=== PATIENT | female | born 1945 | race Hispanic/Latino ===

== ENCOUNTER 2019-01-11 16:08 | Emergency (ER) | payer OTHER ==
--- OUTSIDE RECORDS SUMMARY | 2019-01-11 16:11 | XMS REPORT | Continuity of Care Document ---
:1945 Author Organization [facility] Team Providers Name Role Phone Harpal Garcia MD Unavailable Unavailable Encounters Encounter Performer Location Date Lab Report Harpal Garcia MD [facility] Jan 24, 2012 Problems Problem Effective Dates Problem Status KNEE PAIN, BILATERAL Inactive SHOULDER PAIN, BILATERAL Inactive ARTHRITIS Inactive PAIN IN JOINT, MULTIPLE SITES Inactive DEGENERATIVE JOINT DISEASE, KNEE Inactive RHEUMATOID ARTHRITIS Inactive OSTEOPENIA Inactive SHOULDER PAIN, RIGHT Inactive ELBOW PAIN, LEFT Inactive Procedures Date Description Comments Dec 01, 2009 genitourinary review of systems, E&M denies loss of urine, frequent urination, painful urination, blood in urine or kidney stones Dec 16, 2009 genitourinary review of systems, E&M denies loss of urine, frequent urination, painful urination, blood in urine or kidney stones Jan 18, 2010 genitourinary review of systems, E&M denies loss of urine, frequent urination, painful urination, blood in urine or kidney stones Mar 02, 2010 genitourinary review of systems, E&M denies loss of urine, frequent urination, painful urination, blood in urine or kidney stones May 04, 2010 genitourinary review of systems, E&M denies loss of urine, frequent urination, painful urination, blood in urine or kidney stones Jun 22, 2010 genitourinary review of systems, E&M denies loss of urine, frequent urination, painful urination, blood in urine or kidney stones September 20, 2010 genitourinary review of systems, E&M denies loss of urine, frequent urination, painful urination, blood in urine or kidney stones Dec 21, 2010 genitourinary review of systems, E&M denies loss of urine, frequent urination, painful urination, blood in urine or kidney stones Mar 24, 2011 genitourinary review of systems, E&M denies loss of urine, frequent urination, painful urination, blood in urine or kidney stones Jul 05, 2011 genitourinary review of systems, E&M denies loss of urine, frequent urination, painful urination, blood in urine or kidney stones October 04, 2011 genitourinary review of systems, E&M denies loss of urine, frequent urination, painful urination, blood in urine or kidney stones Jan 03, 2012 genitourinary review of systems, E&M denies loss of urine, frequent urination, painful urination, blood in urine or kidney stones Medications Medication Instructions Start Date Status FOLIC ACID 1 MG TABS 1 po daily Dec 16, 2009 Active VITAMIN D 21014 UNIT CAPS 1 tab q week Dec 16, 2009 Inactive KAPIDEX 60 MG CPDR 1 tab qd Dec 01, 2009 Inactive EC-NAPROSYN 375 MG TBEC 1 tab q 12 hourly prn Dec 01, 2009 Inactive ALENDRONATE SODIUM 35 MG TABS 1 tab q week Mar 02, 2010 Inactive METHOTREXATE 2.5 MG TABS 6 tabs weekly September 20, 2010 Active ALENDRONATE SODIUM 35 MG TABS 1 tab q weekly Mar 24, 2011 Active Vital Signs Date Description Test Result Dec 01, 2009 weight E&M - 3141-9 WEIGHT 155 lb Dec 01, 2009 blood pressure, systolic - 8480-6 BP SYSTOLIC 146 mm Hg Dec 01, 2009 blood pressure, diastolic - 8462-4 BP DIASTOLIC 78 mm Hg Dec 01, 2009 pulse rate E&M - 8867-4 PULSE RATE 82 /min Dec 01, 2009 height E&M - 8302-2 HEIGHT 60 in Dec 16, 2009 blood pressure, systolic - 8480-6 BP SYSTOLIC 113 mm Hg Dec 16, 2009 blood pressure, diastolic - 8462-4 BP DIASTOLIC 63 mm Hg Dec 16, 2009 pulse rate E&M - 8867-4 PULSE RATE 65 /min Jan 18, 2010 blood pressure, systolic - 8480-6 BP SYSTOLIC 122 mm Hg Jan 18, 2010 blood pressure, diastolic - 8462-4 BP DIASTOLIC 58 mm Hg Jan 18, 2010 pulse rate E&M - 8867-4 PULSE RATE 83 /min Mar 02, 2010 blood pressure, systolic - 8480-6 BP SYSTOLIC 129 mm Hg Mar 02, 2010 blood pressure, diastolic - 8462-4 BP DIASTOLIC 67 mm Hg Mar 02, 2010 pulse rate E&M - 8867-4 PULSE RATE 75 /min May 04, 2010 blood pressure, systolic - 8480-6 BP SYSTOLIC 117 mm Hg May 04, 2010 blood pressure, diastolic - 8462-4 BP DIASTOLIC 71 mm Hg May 04, 2010 pulse rate E&M - 8867-4 PULSE RATE 80 /min Jun 22, 2010 blood pressure, systolic - 8480-6 BP SYSTOLIC 144 mm Hg Jun 22, 2010 blood pressure, diastolic - 8462-4 BP DIASTOLIC 76 mm Hg Jun 22, 2010 pulse rate E&M - 8867-4 PULSE RATE 83 /min Jan 03, 2012 pulse rate E&M - 8867-4 PULSE RATE 67 /min Jan 03, 2012 blood pressure, systolic - 8480-6 BP SYSTOLIC 132 mm Hg Jan 03, 2012 blood pressure, diastolic - 8462-4 BP DIASTOLIC 70 mm Hg Results Date Description Test Name Value Reference Interpretation Status Dec 02, hemoglobin, blood HGB 11.2 g/dL 11.5-15.0 Low 2009Dec 02, hematocrit, blood HCT 34.0 % 34.0-44.0 2009Dec 02, platelet count PLATELETS 445 140-415 High 2009 X10E3/UL 10*3/mm3 Dec 02, erythrocyte ESR 85 mm/hr 0-30 High 2009 sedimentation rate Jan 19, erythrocyte ESR 47 mm/hr 0-30 High 2009 sedimentation rate Mar 03, hemoglobin, blood HGB 12.1 g/dL 11.5-15.0 2009Mar 03, hematocrit, blood HCT 37.2 % 34.0-44.0 2009Mar 03, platelet count PLATELETS 347 [phone] X10E3/UL 10*3/mm3 Mar 03, erythrocyte ESR 53 mm/hr 0-30 High 2009 sedimentation rate May 05, hemoglobin, blood HGB 12.5 g/dL 11.5-15.0 2009May 05, hematocrit, blood HCT 37.5 % 34.0-44.0 2009May 05, platelet count PLATELETS 368 [phone] X10E3/UL 10*3/mm3 May 05, erythrocyte ESR 44 mm/hr 0-30 High 2009 sedimentation rate Jun 23, hemoglobin, blood HGB 12.4 g/dL 11.5-15.0 2010Jun 23, hematocrit, blood HCT 37.8 % 34.0-44.0 2010Jun 23, platelet count PLATELETS 382 [phone] X10E3/UL 10*3/mm3 Jun 23, erythrocyte ESR 36 mm/hr 0-30 High 2010 sedimentation rate September 21, hemoglobin, blood HGB 12.7 g/dL 11.5-15.0 2010September 21, hematocrit, blood HCT 38.7 % 34.0-44.0 2010September 21, platelet count PLATELETS 321 [phone] X10E3/UL 10*3/mm3 September 21, erythrocyte ESR 45 mm/hr 0-30 High 2011 sedimentation rate Mar 25, hemoglobin, blood HGB 12.6 g/dL 11.5-15.0 2010Mar 25, hematocrit, blood HCT 38.1 % 34.0-44.0 2010Mar 25, platelet count PLATELETS 348 [phone] X10E3/UL 10*3/mm3 Mar 25, erythrocyte ESR 50 mm/hr 0-56 2010 sedimentation rate Dec 07, alpha-1 globulin, ALPHA 1 GLOB 0.4 g/dL 0.1-0.4 2009 serum null Dec 07, alpha-2 globulin, ALPHA 2 GLOB 1.1 g/dL 0.4-1.2 2009 serum null Dec 07, beta globulin, serum BETA GLOBUL 1.1 g/dL 0.6-1.3 2009 null Dec 02, albumin, serum ALBUMIN 4.1 g/dL 3.6-4.8 2009Dec 02, alkaline ALK PHOS 88 U/L 25-165 2009 phosphatase, serum Dec 02, aspartate SGOT (AST) 20 U/L 0-40 2009 aminotransferase (SGOT), serum Dec 02, alanine SGPT (ALT) 12 U/L 0-40 2009 aminotransferase (SGPT), serum Dec 02, creatinine, serum CREATININE 0.58 0.57-1.00 2009 mg/dL Dec 02, C-reactive protein, CRP 7.63 Units High 2009 serum mg/dL converted. See lab report for original value. Jan 19, albumin, serum ALBUMIN 4.4 g/dL 3.6-4.8 2009Jan 19, alkaline ALK PHOS 102 U/L 25-165 2009 phosphatase, serum Jan 19, aspartate SGOT (AST) 21 U/L 0-40 2009 aminotransferase (SGOT), serum Jan 19, alanine SGPT (ALT) 19 U/L 0-40 2009 aminotransferase (SGPT), serum Jan 16, C-reactive protein, CRP 2.93 Units High 2009 serum mg/dL converted. See lab report for original value. Mar 03, albumin, serum ALBUMIN 4.2 g/dL 3.6-4.8 2009Mar 03, alkaline ALK PHOS 113 U/L 25-165 2009 phosphatase, serum Mar 03, aspartate SGOT (AST) 27 U/L 0-40 2009 aminotransferase (SGOT), serum Mar 03, alanine SGPT (ALT) 28 U/L 0-40 2009 aminotransferase (SGPT), serum Mar 03, creatinine, serum CREATININE 0.69 0.57-1.00 2009 mg/dL Mar 03, C-reactive protein, CRP 3.46 Units High 2009 serum mg/dL converted. See lab report for original value. May 05, albumin, serum ALBUMIN 4.3 g/dL 3.6-4.8 2009May 05, alkaline ALK PHOS 117 U/L 25-165 2009 phosphatase, serum May 05, aspartate SGOT (AST) 41 U/L 0-40 High 2009 aminotransferase (SGOT), serum May 05, alanine SGPT (ALT) 41 U/L 0-40 High 2009 aminotransferase (SGPT), serum May 05, creatinine, serum CREATININE 0.80 0.57-1.00 2009 mg/dL May 05, C-reactive protein, CRP 3.32 Units High 2009 serum mg/dL converted. See lab report for original value. Jun 23, albumin, serum ALBUMIN 4.4 g/dL 3.6-4.8 2010Jun 23, alkaline ALK PHOS 117 U/L 25-165 2010 phosphatase, serum Jun 23, aspartate SGOT (AST) 36 U/L 0-40 2010 aminotransferase (SGOT), serum Jun 23, alanine SGPT (ALT) 35 U/L 0-40 2010 aminotransferase (SGPT), serum Jun 23, creatinine, serum CREATININE 0.79 0.57-1.00 2010 mg/dL Jun 23, C-reactive protein, CRP 2.21 Units High 2010 serum mg/dL converted. See lab report for original value. September 21, albumin, serum ALBUMIN 4.3 g/dL 3.6-4.8 2010September 21, alkaline ALK PHOS 121 U/L 25-165 2010 phosphatase, serum September 21, aspartate SGOT (AST) 32 U/L 0-40 2010 aminotransferase (SGOT), serum September 21, alanine SGPT (ALT) 27 U/L 0-40 2010 aminotransferase (SGPT), serum September 21, creatinine, serum CREATININE 0.67 0.57-1.00 2010 mg/dL September 21, C-reactive protein, CRP 3.42 Units High 2011 serum mg/dL converted. See lab report for original value. Mar 25, albumin, serum ALBUMIN 4.2 g/dL 3.6-4.8 2010Mar 25, alkaline ALK PHOS 115 U/L 25-165 2010 phosphatase, serum Mar 25, aspartate SGOT (AST) 38 U/L 0-40 2010 aminotransferase (SGOT), serum Mar 25, alanine SGPT (ALT) 40 U/L 0-40 2010 aminotransferase (SGPT), serum Mar 25, creatinine, serum CREATININE 0.69 0.57-1.00 2010 mg/dL Mar 25, C-reactive protein, CRP 2.79 Units High 2011 serum mg/dL converted. See lab report for original value.
--- OUTSIDE RECORDS SUMMARY | 2019-01-11 16:11 | XMS REPORT | Continuity of Care Document ---
:1945 Author Organization [facility] Team Providers Name Role Phone Harpal Garcia MD Unavailable Unavailable Encounters Encounter Performer Location Date Lab Report Harpal Garcia MD [facility] Jan 03, 2012 Problems Problem Effective Dates Problem Status [...] daily Dec 16, 2009 Active VITAMIN D 91215 UNIT CAPS 1 tab q week Dec [...] 34.0-44.0 2009Mar 03, platelet count PLATELETS 347 [phone] X10E3/UL 10*3/mm3 Mar 03, erythrocyte ESR 53 mm/hr 0-30 High 2009 sedimentation rate May 05, hemoglobin, blood HGB 12.5 g/dL 11.5-15.0 2009May 05, hematocrit, blood HCT 37.5 % 34.0-44.0 2009May 05, platelet count PLATELETS 368 [phone] X10E3/UL 10*3/mm3 May 05, erythrocyte ESR 44 mm/hr 0-30 High 2009 sedimentation rate Jun 23, hemoglobin, blood HGB 12.4 g/dL 11.5-15.0 2010Jun 23, hematocrit, blood HCT 37.8 % 34.0-44.0 2010Jun 23, platelet count PLATELETS 382 [phone] X10E3/UL 10*3/mm3 Jun 23, erythrocyte ESR 36 mm/hr 0-30 High 2010 sedimentation rate September 21, hemoglobin, blood HGB 12.7 g/dL 11.5-15.0 2010September 21, hematocrit, blood HCT 38.7 % 34.0-44.0 2010September 21, platelet count PLATELETS 321 [phone] X10E3/UL 10*3/mm3 September 21, erythrocyte ESR 45 mm/hr 0-30 High 2011 sedimentation rate Mar 25, hemoglobin, blood HGB 12.6 g/dL 11.5-15.0 2010Mar 25, hematocrit, blood HCT 38.1 % 34.0-44.0 2010Mar 25, platelet count PLATELETS 348 [phone] X10E3/UL 10*3/mm3 Mar 25, erythrocyte ESR 50 [...]
--- OUTSIDE RECORDS SUMMARY | 2019-01-11 16:11 | XMS REPORT | Continuity of Care Document ---
:1945 Author Organization [facility] Team Providers Name Role Phone Harpal Garcia MD Unavailable Unavailable Encounters Encounter Performer Location Date Lab Report Harpal Garcia MD [facility] Jan 04, 2012 Problems Problem Effective Dates Problem Status [...] daily Dec 16, 2009 Active VITAMIN D 39506 UNIT CAPS 1 tab q week Dec [...] 34.0-44.0 2009Mar 03, platelet count PLATELETS 347 [phone] X10E3/UL 10*3/mm3 Mar 03, erythrocyte ESR 53 mm/hr 0-30 High 2009 sedimentation rate May 05, hemoglobin, blood HGB 12.5 g/dL 11.5-15.0 2009May 05, hematocrit, blood HCT 37.5 % 34.0-44.0 2009May 05, platelet count PLATELETS 368 [phone] X10E3/UL 10*3/mm3 May 05, erythrocyte ESR 44 mm/hr 0-30 High 2009 sedimentation rate Jun 23, hemoglobin, blood HGB 12.4 g/dL 11.5-15.0 2010Jun 23, hematocrit, blood HCT 37.8 % 34.0-44.0 2010Jun 23, platelet count PLATELETS 382 [phone] X10E3/UL 10*3/mm3 Jun 23, erythrocyte ESR 36 mm/hr 0-30 High 2010 sedimentation rate September 21, hemoglobin, blood HGB 12.7 g/dL 11.5-15.0 2010September 21, hematocrit, blood HCT 38.7 % 34.0-44.0 2010September 21, platelet count PLATELETS 321 [phone] X10E3/UL 10*3/mm3 September 21, erythrocyte ESR 45 mm/hr 0-30 High 2011 sedimentation rate Mar 25, hemoglobin, blood HGB 12.6 g/dL 11.5-15.0 2010Mar 25, hematocrit, blood HCT 38.1 % 34.0-44.0 2010Mar 25, platelet count PLATELETS 348 [phone] X10E3/UL 10*3/mm3 Mar 25, erythrocyte ESR 50 [...]
--- OUTSIDE RECORDS SUMMARY | 2019-01-11 16:11 | XMS REPORT | Continuity of Care Document ---
:1945 Author Organization [facility] Care Team Providers Name Role Phone [facility] Unavailable Unavailable Problems Problem Status Onset Classification Date Comments Source Date Reported Osteoporosis Active Condition 08/27/2013 [facility] KNEE PAIN, Active Condition 08/27/2013 [facility] BIL[facility]AL [facility] SHOULDER PAIN, Active Condition 08/27/2013 [facility] BILATERAL [facility] ARTHRITIS Active Condition 08/27/2013 [facility] PAIN IN JOINT, Active Condition 08/27/2013 [facility] MULTIPLE SITES [facility] DEGENERATIVE Active Condition 08/27/2013 [facility] JOINT DISEASE, Bone & KNEE Joint RHEUMATOID Active Condition 08/27/2013 [facility] ARTHRITIS [facility] OSTEOPENIA Active Condition 08/27/2013 [facility] SHOULDER PAIN, Active Condition 08/27/2013 [facility] ELBOW PAIN, LEFT Active Condition 08/27/2013 [facility] Medications Medication Details Route Status Patient Ordering Order Source Instructions Provider Date METHOTREXATE 6 tb po q Active [facility] 2[facility]5 MG TABS wk 014 [facility] METHOTREXATE 4 tbs po q Active [facility] 2[facility]5 MG TABS wk 014 [facility] ALENDRONATE 1 tb po q Active [facility] SODIUM 70 MG wk 013 Bone & TABS Joint METHOTREXATE 5 tbs po q Active [facility] 2.5 MG TABS wk 013 [facility] ALENDRONATE 1 tab q Active [facility] SODIUM 35 MG weekly 011 [facility] & TABS Joint ALENDRONATE 1 tab q Active [facility] SODIUM 35 MG weekly 011 [facility] TABS Joint ALENDRONATE 1 tab q Active [facility] SODIUM 35 MG weekly 011 Bone & TABS Joint METHOTREXATE 6 tabs Active [facility] 2.5 MG TABS weekly 011 [facility] METHOTREXATE 6 tabs Active [facility] 2.5 MG TABS weekly 011 [facility] METHOTREXATE 6 tabs Active [facility] 2.5 MG TABS weekly 011 [facility] ALENDRONATE 1 tab q No Longer [facility] SODIUM 35 MG week Active 010 Bone & TABS Joint ALENDRONATE 1 tab q No Longer [facility] SODIUM 35 MG week Active 010 Bone & TABS Joint ALENDRONATE 1 tab q No Longer [facility] SODIUM 35 MG week Active 010 Bone & TABS Joint FOLIC ACID 1 MG 1 po daily Active [facility] TABS 010 [facility] VITAMIN D 76101 1 tab q No Longer [facility] UNIT CAPS week Active 010 [facility] FOLIC ACID 1 MG 1 po daily Active [facility] TABS 010 [facility] VITAMIN D 54992 1 tab q No Longer [facility] UNIT CAPS week Active 010 [facility] FOLIC ACID 1 MG 1 po daily Active [facility] TABS 010 [facility] KAPIDEX 60 MG 1 tab qd No Longer [facility] CPDR Active 010 [facility] EC-NAPROSYN 375 1 tab q 12 No Longer [facility] MG TBEC hourly prn Active 010 [facility] KAPIDEX 60 MG 1 tab qd No Longer [facility] CPDR Active 010 [facility] EC-NAPROSYN 375 1 tab q 12 No Longer [facility] MG TBEC hourly prn Active 010 [facility] Allergies, Adverse Reactions, Alerts No Known Medication Allergies Immunizations No Data Provided for This Section Results Order Name Results Value Reference Date Interpretation Comments Source Range Hematology ESR 50 0 - 56 2010 [facility] Chemistry CRP 2.79 2010 [facility] Hematology HGB 12.6 11.5 - 15.0 2010 [facility] Hemat[facility] HCT 38.1 34.0 - 44.0 2010 [facility] Hematology PLATELETS 348 140 - 415 X10E3/U 2010 [facility] Chemistry ALBUMIN 4.2 3.6 - 4.8 2010 [facility] Chemistry ALK PHOS 115 25 - 165 [facility] SGOT (AST) 38 0 - 40 2010 [facility] Chemistry SGPT (ALT) 40 0 - 40 2010 [facility] Chemistry CREATININE 0.69 0.57 - 1.00 2010 [facility] Hematology ESR 45 0 - 30 2010 [facility] Chemistry CRP 3.42 2010 [facility] Chemistry ALBUMIN 4.3 3.6 - 4.8 2010 [facility] Chemistry ALK PHOS 121 25 - 165 2010 [facility] Chemistry SGOT (AST) 32 0 - 40 2010 [facility] Chemistry SGPT (ALT) 27 0 - 40 2010 [facility] Chemistry CREATININE 0.67 0.57 - 1.00 2010 [facility] Hematology HGB 12.7 11.5 - 15.0 2010 [facility] Hematology HCT 38.7 34.0 - 44.0 2010 [facility] Hematology PLATELETS 321 140 - 415 X10E3/U 2010 [facility] Chemistry ALBUMIN 4.4 3.6 - 4.8 2010 [facility] Chemistry ALK PHOS 117 25 - 165 2010 [facility] Chemistry SGOT (AST) 36 0 - 40 2010 [facility] Chemistry SGPT (ALT) 35 0 - 40 2010 [facility] Chemistry CREATININE 0.79 0.57 - 1.00 2010 [facility] Chemistry CRP 2.21 2010 [facility] Hematology ESR 36 0 - 30 2010 [facility] Hematology HGB 12.4 11.5 - 15.0 2010 [facility] Hematology HCT 37.8 34.0 - 44.0 2010 [facility] Hematology PLATELETS 382 140 - 415 X10E3/U 2010 [facility] Chemistry CRP 3.32 2009 [facility] Hematology ESR 44 0 - 30 2009 [facility] Chemistry SGOT (AST) 41 0 - 40 2009 [facility] Chemistry SGPT (ALT) 41 0 - 40 2009 [facility] Chemistry ALBUMIN 4.3 3.6 - 4.8 2009 [facility] Chemistry ALK PHOS 117 25 - 165 2009 [facility] Chemistry CREATININE 0.80 0.57 - 1.00 2009 [facility] Hematology HGB 12.5 11.5 - 15.0 2009 [facility] Hematology HCT 37.5 34.0 - 44.0 2009 [facility] Hematology PLATELETS 368 140 - 415 X10E3/U 2009 [facility] Hematology ESR 53 0 - 30 2009 [facility] Hematology HGB 12.1 11.5 - 15.0 2009 [facility] Hematology HCT 37.2 34.0 - 44.0 2009 [facility] Hematology PLATELETS 347 140 - 415 X10E3/U 2009 [facility] Chemistry ALBUMIN 4.2 3.6 - 4.8 2009 [facility] Chemistry ALK PHOS 113 25 - 165 2009 [facility] Chemistry SGOT (AST) 27 0 - 40 2009 [facility] Chemistry SGPT (ALT) 28 0 - 40 2009 [facility] Chemistry CREATININE 0.69 0.57 - 1.00 2009 [facility] Chemistry CRP 3.46 2009 [facility] Chemistry CRP 2.93 2009 [facility] Hematology ESR 47 0 - 30 2009 [facility] Chemistry ALBUMIN 4.4 3.6 - 4.8 2009 [facility] Chemistry ALK PHOS 102 25 - 165 2009 [facility] Chemistry SGOT (AST) 21 0 - 40 2009 [facility] Chemistry SGPT (ALT) 19 0 - 40 2009 [facility] Chemistry ALPHA 1 GLOB 0.4 4.5 - 12.0 g/dL 2009 [facility] Chemistry ALPHA 1 GLOB 0.4 0.1 - 0.4 g/dL 2009 [facility] Chemistry ALPHA 2 GLOB 1.1 0.4 - 1.2 [facility] g/dL 2009 [facility] Chemistry BETA GLOBUL 1.1 0.6 - 1.3 [facility] g/dL 2009 [facility] Hematology ESR 85 0 - 30 [facility]2009 [facility] Chemistry CRP 7.63 2009 [facility] Chemistry ALBUMIN 4.1 3.6 - 4.8 [facility]2009 [facility] Chemistry ALK PHOS 88 25 - 165 [facility]2009 [facility] Chemistry SGOT (AST) 20 0 - 40 [facility]2009 [facility] Chemistry SGPT (ALT) 12 0 - 40 [facility]2009 [facility] Chemistry CREATININE 0.58 0.57 - 1.00 2009 [facility] Hematology HGB 11.2 11.5 - 15.0 [facility] Hematology HCT 34.0 34.0 - 44.0 [facility] Hematology PLATELETS 445 140 - 415 X10E3/U 2009 [facility] Pathology Reports No Data Provided for This Section Diagnostic Reports No Data Provided for This Section Consultation Notes No Data Provided for This Section Discharge Summaries No Data Provided for This Section History and Physicals No Data Provided for This Section Vital Signs Vital Sign Value Date Comments Source Systolic (mm Hg) 133 08/27/2013 [facility] Diastolic (mm Hg) 80 08/27/2013 [facility] Heart Rate 80 08/27/2013 [facility] Heart Rate 75 05/28/2013 [facility] Systolic (mm Hg) 132 05/28/2013 [facility] Diastolic (mm Hg) 77 05/28/2013 [facility] Heart Rate 74 02/26/2013 [facility] Systolic (mm Hg) 130 02/26/2013 [facility] Diastolic (mm Hg) 62 02/26/2013 [facility] Systolic (mm Hg) 145 11/20/2012 [facility] Diastolic (mm Hg) 62 11/20/2012 [facility] Heart Rate 64 11/20/2012 [facility] Systolic (mm Hg) 131 08/21/2012 [facility] Diastolic (mm Hg) 73 08/21/2012 [facility] Heart Rate 74 08/21/2012 [facility] Systolic (mm Hg) 144 04/03/2012 [facility] Diastolic (mm Hg) 78 04/03/2012 [facility] Heart Rate 76 04/03/2012 [facility] Heart Rate 67 01/03/2012 [facility] Systolic (mm Hg) 132 01/03/2012 [facility] Diastolic (mm Hg) 70 01/03/2012 [facility] Systolic (mm Hg) 144 06/22/2010 [facility] Diastolic (mm Hg) 76 06/22/2010 [facility] Heart Rate 83 06/22/2010 [facility] Systolic (mm Hg) 117 05/04/2010 [facility] Diastolic (mm Hg) 71 05/04/2010 [facility] Heart Rate 80 05/04/2010 [facility] Systolic (mm Hg) 129 03/02/2010 [facility] Diastolic (mm Hg) 67 03/02/2010 [facility] Heart Rate 75 03/02/2010 [facility] Systolic (mm Hg) 122 01/18/2010 [facility] Diastolic (mm Hg) 58 01/18/2010 [facility] Heart Rate 83 01/18/2010 [facility] Systolic (mm Hg) 113 12/16/2009 [facility] Diastolic (mm Hg) 63 12/16/2009 [facility] Heart Rate 65 12/16/2009 [facility] Weight 155 12/01/2009 [facility] Systolic (mm Hg) 146 12/01/2009 [facility] Diastolic (mm Hg) 78 12/01/2009 [facility] Heart Rate 82 12/01/2009 [facility] Height 60 12/01/2009 [facility] Encounters Location Location Encounter Encounter Reason Attending ADM DC Status Source Details Type Number For Provider Date Date Visit [facility] Report [id number] Harpal 01/02 01/02 [facility] [address] [facility] [facility] [id number] Harpal 01/03 01/03 [facility] [address] [facility] [id number] Fayyaneal 01/23 01/23 [facility] [address] /[facility] [id number] Fayyaz 04/03 04/03 [facility] [address] /[facility] [id number] Fayyaenal 08/21 08/21 [facility] [address] /[facility] [id number] Fayyaz 08/22 08/22 [facility] [address] /[facility] [id number] Fayyaneal 11/20 11/20 [facility] [address] /[facility] [id number] Alokyyaneal 01/31 01/31 [facility] [address] /[facility] [id number] Fayyaneal 02/26 02/26 [facility] [address] /[facility] [id number] Fayyaneal 04/10 04/10 [facility] [address] /[facility] [id number] Fayyaneal 05/28 05/28 [facility] [address] /[facility] [id number] Fayyaneal 07/10 07/10 [facility] [address] [facility] /[facility] [id number] Fayyaneal 08/26 08/26 [facility] [address] /[facility] [id number] Fayyaneal 08/27 08/27 [facility] [address] /2013 [facility] Procedures Procedure Code Date Perfomer Comments Source genitourinary review 490317.9 12/01/2009 denies loss of [facility] systems, E&M urine, & Joint frequent urination, painful urination, blood in urine or kidney stones Assessment and Plan No Data Provided for This Section Plan of Care No Data Provided for This Section Social History No Data Provided for This Section Family History No Data Provided for This Section Advance Directives No Data Provided for This Section Functional Status No Data Provided for This Section
--- OUTSIDE RECORDS SUMMARY | 2019-01-11 16:11 | XMS REPORT | Continuity of Care Document ---
:1945 Author Organization [facility] Team Providers Name Role Phone Harpal Garcia MD Unavailable Unavailable Insurance Providers Payer name Policy type / Coverage type Policy ID Covered democrat ID Policy [employer] Encounters Encounter Performer Location Date Lab Report [facility] Apr 03, 2012 Problems Problem Effective Dates Problem Status KNEE PAIN, BILATERAL Active SHOULDER PAIN, BILATERAL Active ARTHRITIS Active PAIN IN JOINT, MULTIPLE SITES Active DEGENERATIVE JOINT DISEASE, KNEE Active RHEUMATOID ARTHRITIS Active OSTEOPENIA Active SHOULDER PAIN, RIGHT Active ELBOW PAIN, LEFT Active Medications Medication Instructions Start Date Status FOLIC ACID 1 MG TABS 1 po daily Dec 16, 2009 Active VITAMIN D 25875 UNIT CAPS 1 tab q week Dec [...] - 8462-4 BP DIASTOLIC 70 mm Hg Apr 03, 2012 blood pressure, systolic - 8480-6 BP SYSTOLIC 144 mm Hg Apr 03, 2012 blood pressure, diastolic - 8462-4 BP DIASTOLIC 78 mm Hg Apr 03, 2012 pulse rate E&M - 8867-4 PULSE RATE 76 /min Results Date Description Test Name Value Reference [...] 34.0-44.0 2009Mar 03, platelet count PLATELETS 347 [phone] X10E3/UL 10*3/mm3 Mar 03, erythrocyte ESR 53 mm/hr 0-30 High 2009 sedimentation rate May 05, hemoglobin, blood HGB 12.5 g/dL 11.5-15.0 2009May 05, hematocrit, blood HCT 37.5 % 34.0-44.0 2009May 05, platelet count PLATELETS 368 [phone] X10E3/UL 10*3/mm3 May 05, erythrocyte ESR 44 mm/hr 0-30 High 2009 sedimentation rate Jun 23, hemoglobin, blood HGB 12.4 g/dL 11.5-15.0 2010Jun 23, hematocrit, blood HCT 37.8 % 34.0-44.0 2010Jun 23, platelet count PLATELETS 382 [phone] X10E3/UL 10*3/mm3 Jun 23, erythrocyte ESR 36 mm/hr 0-30 High 2010 sedimentation rate September 21, hemoglobin, blood HGB 12.7 g/dL 11.5-15.0 2010September 21, hematocrit, blood HCT 38.7 % 34.0-44.0 2010September 21, platelet count PLATELETS 321 [phone] X10E3/UL 10*3/mm3 September 21, erythrocyte ESR 45 mm/hr 0-30 High 2010 sedimentation rate Mar 25, hemoglobin, blood HGB 12.6 g/dL 11.5-15.0 2010Mar 25, hematocrit, blood HCT 38.1 % 34.0-44.0 2010Mar 25, platelet count PLATELETS 348 [phone] X10E3/UL 10*3/mm3 Mar 25, erythrocyte ESR 50 [...] 02, C-reactive protein, CRP 7.63 Units High 2010 serum mg/dL converted. See lab report for original value. Jan 19, albumin, serum ALBUMIN 4.4 g/dL 3.6-4.8 2009 15, alkaline ALK PHOS 102 U/L 25-165 2009 phosphatase, serum Sep 15, aspartate SGOT (AST) 21 U/L 0-40 2010 aminotransferase (SGOT), serum Sep 15, alanine SGPT (ALT) 19 U/L 0-40 2009 aminotransferase (SGPT), serum Sep 16, C-reactive protein, CRP 2.93 Units High 2010 serum mg/dL converted. See [...] 23, C-reactive protein, CRP 2.21 Units High 2011 serum mg/dL converted. See lab report for original value. September 21, albumin, serum ALBUMIN 4.3 g/dL 3.6-4.8 2010September 21, alkaline ALK PHOS 121 U/L 25-165 2010 phosphatase, serum September 21, aspartate SGOT (AST) 32 U/L 0-40 2010 aminotransferase (SGOT), serum September 21, alanine SGPT (ALT) 27 U/L 0-40 2010 aminotransferase (SGPT), serum September 21, creatinine, serum CREATININE 0.67 0.57-1.00 2011 mg/dL September 21, C-reactive protein, CRP 3.42 Units High 2010 serum mg/dL converted. See [...]
--- OUTSIDE RECORDS SUMMARY | 2019-01-11 16:12 | XMS REPORT | Continuity of Care Document ---
:1945 Author Organization [facility] Team Providers Name Role Phone Harpal Garcia MD Unavailable Unavailable Insurance Providers Payer name Policy type / Coverage type Policy ID Covered green party ID Policy [employer] Medicaid Encounters Encounter Performer Location Date Lab Report [facility] Aug 21, 2012 Problems Problem Effective Dates Problem Status KNEE PAIN, BILATERAL Active SHOULDER PAIN, BILATERAL Active ARTHRITIS Active PAIN IN JOINT, MULTIPLE SITES Active DEGENERATIVE JOINT DISEASE, KNEE Active RHEUMATOID ARTHRITIS Active OSTEOPENIA Active SHOULDER PAIN, RIGHT Active ELBOW PAIN, LEFT Active Medications Medication Instructions Start Date Status FOLIC ACID 1 MG TABS 1 po daily Dec 16, 2009 Active VITAMIN D 55355 UNIT CAPS 1 tab q week Dec [...] E&M - 8867-4 PULSE RATE 76 /min Aug 21, 2012 blood pressure, systolic - 8480-6 BP SYSTOLIC 131 mm Hg Aug 21, 2012 blood pressure, diastolic - 8462-4 BP DIASTOLIC 73 mm Hg Aug 21, 2012 pulse rate E&M - 8867-4 PULSE RATE 74 /min Results Date Description Test Name Value [...] 34.0-44.0 2009Mar 03, platelet count PLATELETS 347 [phone] X10E3/UL 10*3/mm3 Mar 03, erythrocyte ESR 53 mm/hr 0-30 High 2009 sedimentation rate May 05, hemoglobin, blood HGB 12.5 g/dL 11.5-15.0 2009May 05, hematocrit, blood HCT 37.5 % 34.0-44.0 2009May 05, platelet count PLATELETS 368 [phone] X10E3/UL 10*3/mm3 May 05, erythrocyte ESR 44 mm/hr 0-30 High 2009 sedimentation rate Jun 23, hemoglobin, blood HGB 12.4 g/dL 11.5-15.0 2010Jun 23, hematocrit, blood HCT 37.8 % 34.0-44.0 2010Jun 23, platelet count PLATELETS 382 [phone] X10E3/UL 10*3/mm3 Jun 23, erythrocyte ESR 36 mm/hr 0-30 High 2010 sedimentation rate September 21, hemoglobin, blood HGB 12.7 g/dL 11.5-15.0 2010September 21, hematocrit, blood HCT 38.7 % 34.0-44.0 2010September 21, platelet count PLATELETS 321 [phone] X10E3/UL 10*3/mm3 September 21, erythrocyte ESR 45 mm/hr 0-30 High 2010 sedimentation rate Mar 25, hemoglobin, blood HGB 12.6 g/dL 11.5-15.0 2010Mar 25, hematocrit, blood HCT 38.1 % 34.0-44.0 2010Mar 25, platelet count PLATELETS 348 [phone] X10E3/UL 10*3/mm3 Mar 25, erythrocyte ESR 50 [...] Dec 02, creatinine, serum CREATININE 0.58 0.57-1.00 2010 mg/dL Dec 02, C-reactive protein, CRP 7.63 Units High 2010 serum mg/dL converted. See lab report for original value. Jan 19, albumin, serum ALBUMIN 4.4 g/dL 3.6-4.8 2009Jan 19, alkaline ALK PHOS 102 U/L 25-165 2009 phosphatase, serum Jan 15, aspartate SGOT (AST) 21 U/L 0-40 2010 aminotransferase (SGOT), serum Jan 15, alanine SGPT (ALT) 19 U/L 0-40 2009 aminotransferase (SGPT), serum Jan 20, C-reactive protein, CRP 2.93 Units High 2010 [...] Mar 03, creatinine, serum CREATININE 0.69 0.57-1.00 2010 mg/dL Mar 03, C-reactive protein, CRP 3.46 [...] May 05, creatinine, serum CREATININE 0.80 0.57-1.00 2010 mg/dL May 05, C-reactive protein, CRP 3.32 Units High 2010 serum mg/dL converted. See [...] 25, C-reactive protein, CRP 2.79 Units High 2010 serum mg/dL converted. See lab report for original value.
--- OUTSIDE RECORDS SUMMARY | 2019-01-11 16:12 | XMS REPORT | Continuity of Care Document ---
:1945 Author Organization [facility] Team Providers Name Role Phone Harpal Garcia MD Unavailable Unavailable Insurance Providers Payer name Policy type / Coverage type Policy ID Covered democrat ID Policy [employer] Medicaid Encounters Encounter Performer Location Date Lab Report [facility] Feb 26, 2013 Problems Problem Effective Dates Problem Status KNEE PAIN, BILATERAL Active SHOULDER PAIN, BILATERAL Active ARTHRITIS Active PAIN IN JOINT, MULTIPLE SITES Active DEGENERATIVE JOINT DISEASE, KNEE Active RHEUMATOID ARTHRITIS Active OSTEOPENIA Active SHOULDER PAIN, RIGHT Active ELBOW PAIN, LEFT Active Medications Medication Instructions Start Date Status FOLIC ACID 1 MG TABS 1 po daily Dec 16, 2009 Active VITAMIN D 58003 UNIT CAPS 1 tab q week Dec 16, 2009 Inactive KAPIDEX 60 MG CPDR 1 tab qd Dec 01, 2009 Inactive EC-NAPROSYN 375 MG TBEC 1 tab q 12 hourly prn Dec 01, 2009 Inactive ALENDRONATE SODIUM 35 MG TABS 1 tab q week Mar 02, 2010 Inactive METHOTREXATE 2.5 MG TABS 5 tbs po q wk Feb 26, 2013 Active ALENDRONATE SODIUM 70 MG TABS 1 tb po q wk Feb 26, 2013 Active Vital Signs Date Description Test Result [...] E&M - 8867-4 PULSE RATE 74 /min Nov 20, 2012 blood pressure, systolic - 8480-6 BP SYSTOLIC 145 mm Hg Nov 20, 2012 blood pressure, diastolic - 8462-4 BP DIASTOLIC 62 mm Hg Nov 20, 2012 pulse rate E&M - 8867-4 PULSE RATE 64 /min Feb 26, 2013 pulse rate E&M - 8867-4 PULSE RATE 74 /min Feb 26, 2013 blood pressure, systolic - 8480-6 BP SYSTOLIC 130 mm Hg Feb 26, 2013 blood pressure, diastolic - 8462-4 BP DIASTOLIC 62 mm Hg Results Date Description Test Name [...] 34.0-44.0 2009Mar 03, platelet count PLATELETS 347 [phone] X10E3/UL 10*3/mm3 Mar 03, erythrocyte ESR 53 mm/hr 0-30 High 2009 sedimentation rate May 05, hemoglobin, blood HGB 12.5 g/dL 11.5-15.0 2009May 05, hematocrit, blood HCT 37.5 % 34.0-44.0 2009May 05, platelet count PLATELETS 368 [phone] X10E3/UL 10*3/mm3 May 05, erythrocyte ESR 44 mm/hr 0-30 High 2009 sedimentation rate Jun 23, hemoglobin, blood HGB 12.4 g/dL 11.5-15.0 2010Jun 23, hematocrit, blood HCT 37.8 % 34.0-44.0 2010Jun 23, platelet count PLATELETS 382 [phone] X10E3/UL 10*3/mm3 Jun 23, erythrocyte ESR 36 mm/hr 0-30 High 2010 sedimentation rate September 21, hemoglobin, blood HGB 12.7 g/dL 11.5-15.0 2010September 21, hematocrit, blood HCT 38.7 % 34.0-44.0 2010September 21, platelet count PLATELETS 321 [phone] X10E3/UL 10*3/mm3 September 21, erythrocyte ESR 45 mm/hr 0-30 High 2010 sedimentation rate Mar 25, hemoglobin, blood HGB 12.6 g/dL 11.5-15.0 2010Mar 25, hematocrit, blood HCT 38.1 % 34.0-44.0 2010Mar 25, platelet count PLATELETS 348 [phone] X10E3/UL 10*3/mm3 Mar 25, erythrocyte ESR 50 [...] 02, aspartate SGOT (AST) 20 U/L 0-40 2010 aminotransferase (SGOT), serum Dec 02, alanine SGPT [...] 03, C-reactive protein, CRP 3.46 Units High 2010 serum mg/dL converted. See [...]
--- OUTSIDE RECORDS SUMMARY | 2019-01-11 16:12 | XMS REPORT | Continuity of Care Document ---
:1945 Author Organization [facility] Team Providers Name Role Phone Harpal Garcia MD Unavailable Unavailable Insurance Providers Payer name Policy type / Coverage type Policy ID Covered alliance party ID Policy [employer] Medicaid Encounters Encounter Performer Location Date Lab Report [facility] Nov 20, 2012 Problems Problem Effective Dates Problem Status KNEE PAIN, BILATERAL Active SHOULDER PAIN, BILATERAL Active ARTHRITIS Active PAIN IN JOINT, MULTIPLE SITES Active DEGENERATIVE JOINT DISEASE, KNEE Active RHEUMATOID ARTHRITIS Active OSTEOPENIA Active SHOULDER PAIN, RIGHT Active ELBOW PAIN, LEFT Active Medications Medication Instructions Start Date Status FOLIC ACID 1 MG TABS 1 po daily Dec 16, 2009 Active VITAMIN D 19271 UNIT CAPS 1 tab q week Dec [...] E&M - 8867-4 PULSE RATE 64 /min Results Date Description Test Name Value [...] 34.0-44.0 2009Mar 03, platelet count PLATELETS 347 [phone] X10E3/UL 10*3/mm3 Mar 03, erythrocyte ESR 53 mm/hr 0-30 High 2009 sedimentation rate May 05, hemoglobin, blood HGB 12.5 g/dL 11.5-15.0 2009May 05, hematocrit, blood HCT 37.5 % 34.0-44.0 2009May 05, platelet count PLATELETS 368 [phone] X10E3/UL 10*3/mm3 May 05, erythrocyte ESR 44 mm/hr 0-30 High 2009 sedimentation rate Jun 23, hemoglobin, blood HGB 12.4 g/dL 11.5-15.0 2010Jun 23, hematocrit, blood HCT 37.8 % 34.0-44.0 2010Jun 23, platelet count PLATELETS 382 [phone] X10E3/UL 10*3/mm3 Jun 23, erythrocyte ESR 36 mm/hr 0-30 High 2010 sedimentation rate September 21, hemoglobin, blood HGB 12.7 g/dL 11.5-15.0 2010September 21, hematocrit, blood HCT 38.7 % 34.0-44.0 2010September 21, platelet count PLATELETS 321 [phone] X10E3/UL 10*3/mm3 September 21, erythrocyte ESR 45 mm/hr 0-30 High 2010 sedimentation rate Mar 25, hemoglobin, blood HGB 12.6 g/dL 11.5-15.0 2010Mar 25, hematocrit, blood HCT 38.1 % 34.0-44.0 2010Mar 25, platelet count PLATELETS 348 [phone] X10E3/UL 10*3/mm3 Mar 25, erythrocyte ESR 50 [...] 19, aspartate SGOT (AST) 21 U/L 0-40 2010 aminotransferase (SGOT), serum Jan 19, alanine SGPT (ALT) 19 U/L 0-40 2010 aminotransferase (SGPT), serum Jan 20, C-reactive protein, CRP 2.93 Units High 2010 serum mg/dL converted. See lab report for original value. Mar 03, albumin, serum ALBUMIN 4.2 g/dL 3.6-4.8 2009Mar 03, alkaline ALK PHOS 113 U/L 25-165 2009 phosphatase, serum Mar 03, aspartate SGOT (AST) 27 U/L 0-40 2010 aminotransferase (SGOT), serum Mar 03, alanine SGPT [...] aspartate SGOT (AST) 41 U/L 0-40 High 2010 aminotransferase (SGOT), serum May 05, alanine SGPT [...]
--- OUTSIDE RECORDS SUMMARY | 2019-01-11 16:12 | XMS REPORT | Continuity of Care Document ---
:1945 Author Organization [facility] Team Providers Name Role Phone Harpal Garcia MD Unavailable Unavailable Insurance Providers Payer name Policy type / Coverage type Policy ID Covered republican ID Policy [employer] Medicaid Encounters Encounter Performer Location Date Lab Report [facility] Jan 31, 2013 Problems Problem Effective Dates Problem Status KNEE PAIN, BILATERAL Active SHOULDER PAIN, BILATERAL Active ARTHRITIS Active PAIN IN JOINT, MULTIPLE SITES Active DEGENERATIVE JOINT DISEASE, KNEE Active RHEUMATOID ARTHRITIS Active OSTEOPENIA Active SHOULDER PAIN, RIGHT Active ELBOW PAIN, LEFT Active Medications Medication Instructions Start Date Status FOLIC ACID 1 MG TABS 1 po daily Dec 16, 2009 Active VITAMIN D 44124 UNIT CAPS 1 tab q week Dec [...] 34.0-44.0 2009Mar 03, platelet count PLATELETS 347 [phone] X10E3/UL 10*3/mm3 Mar 03, erythrocyte ESR 53 mm/hr 0-30 High 2009 sedimentation rate May 05, hemoglobin, blood HGB 12.5 g/dL 11.5-15.0 2009May 05, hematocrit, blood HCT 37.5 % 34.0-44.0 2009May 05, platelet count PLATELETS 368 [phone] X10E3/UL 10*3/mm3 May 05, erythrocyte ESR 44 mm/hr 0-30 High 2009 sedimentation rate Jun 23, hemoglobin, blood HGB 12.4 g/dL 11.5-15.0 2010Jun 23, hematocrit, blood HCT 37.8 % 34.0-44.0 2010Jun 23, platelet count PLATELETS 382 [phone] X10E3/UL 10*3/mm3 Jun 23, erythrocyte ESR 36 mm/hr 0-30 High 2010 sedimentation rate September 21, hemoglobin, blood HGB 12.7 g/dL 11.5-15.0 2010September 21, hematocrit, blood HCT 38.7 % 34.0-44.0 2010September 21, platelet count PLATELETS 321 [phone] X10E3/UL 10*3/mm3 September 21, erythrocyte ESR 45 mm/hr 0-30 High 2010 sedimentation rate Mar 25, hemoglobin, blood HGB 12.6 g/dL 11.5-15.0 2010Mar 25, hematocrit, blood HCT 38.1 % 34.0-44.0 2010Mar 25, platelet count PLATELETS 348 [phone] X10E3/UL 10*3/mm3 Mar 25, erythrocyte ESR 50 [...]
--- OUTSIDE RECORDS SUMMARY | 2019-01-11 16:12 | XMS REPORT | Continuity of Care Document ---
:1945 Author Organization [facility] Providers Name Role Phone Harpal Garcia MD Unavailable Unavailable Insurance Providers Payer name Policy type / Coverage type Policy ID Covered libertarian ID Policy [employer] Medicaid Encounters Encounter Performer Location Date Lab Report [facility] Aug 22, 2012 Problems Problem Effective Dates Problem Status KNEE PAIN, BILATERAL Active SHOULDER PAIN, BILATERAL Active ARTHRITIS Active PAIN IN JOINT, MULTIPLE SITES Active DEGENERATIVE JOINT DISEASE, KNEE Active RHEUMATOID ARTHRITIS Active OSTEOPENIA Active SHOULDER PAIN, RIGHT Active ELBOW PAIN, LEFT Active Medications Medication Instructions Start Date Status FOLIC ACID 1 MG TABS 1 po daily Dec 16, 2009 Active VITAMIN D 33992 UNIT CAPS 1 tab q week Dec [...] 34.0-44.0 2009Mar 03, platelet count PLATELETS 347 [phone] X10E3/UL 10*3/mm3 Mar 03, erythrocyte ESR 53 mm/hr 0-30 High 2009 sedimentation rate May 05, hemoglobin, blood HGB 12.5 g/dL 11.5-15.0 2009May 05, hematocrit, blood HCT 37.5 % 34.0-44.0 2009May 05, platelet count PLATELETS 368 [phone] X10E3/UL 10*3/mm3 May 05, erythrocyte ESR 44 mm/hr 0-30 High 2009 sedimentation rate Jun 23, hemoglobin, blood HGB 12.4 g/dL 11.5-15.0 2010Jun 23, hematocrit, blood HCT 37.8 % 34.0-44.0 2010Jun 23, platelet count PLATELETS 382 [phone] X10E3/UL 10*3/mm3 Jun 23, erythrocyte ESR 36 mm/hr 0-30 High 2010 sedimentation rate September 21, hemoglobin, blood HGB 12.7 g/dL 11.5-15.0 2010September 21, hematocrit, blood HCT 38.7 % 34.0-44.0 2010September 21, platelet count PLATELETS 321 [phone] X10E3/UL 10*3/mm3 September 21, erythrocyte ESR 45 mm/hr 0-30 High 2010 sedimentation rate Mar 25, hemoglobin, blood HGB 12.6 g/dL 11.5-15.0 2010Mar 25, hematocrit, blood HCT 38.1 % 34.0-44.0 2010Mar 25, platelet count PLATELETS 348 [phone] X10E3/UL 10*3/mm3 Mar 25, erythrocyte ESR 50 [...]
--- OUTSIDE RECORDS SUMMARY | 2019-01-11 16:12 | XMS REPORT | Continuity of Care Document ---
:1945 Author Organization [facility] Team Providers Name Role Phone Harpal Garcia MD Unavailable Unavailable Insurance Providers Payer name Policy type / Coverage type Policy ID Covered alliance party ID Policy [employer] Medicaid Encounters Encounter Performer Location Date Lab Report [facility] May 28, 2013 Problems Problem Effective Dates Problem Status KNEE PAIN, BILATERAL Active SHOULDER PAIN, BILATERAL Active ARTHRITIS Active PAIN IN JOINT, MULTIPLE SITES Active DEGENERATIVE JOINT DISEASE, KNEE Active RHEUMATOID ARTHRITIS Active OSTEOPENIA Active SHOULDER PAIN, RIGHT Active ELBOW PAIN, LEFT Active Medications Medication Instructions Start Date Status FOLIC ACID 1 MG TABS 1 po daily Dec 16, 2009 Active VITAMIN D 61712 UNIT CAPS 1 tab q week Dec 16, 2009 Inactive KAPIDEX 60 MG CPDR 1 tab qd Dec 01, 2009 Inactive EC-NAPROSYN 375 MG TBEC 1 tab q 12 hourly prn Dec 01, 2009 Inactive ALENDRONATE SODIUM 35 MG TABS 1 tab q week Mar 02, 2010 Inactive ALENDRONATE SODIUM 70 MG TABS 1 tb po q wk Feb 26, 2013 Active METHOTREXATE 2.5 MG TABS 4 tbs po q wk May 28, 2013 Active Vital Signs Date Description Test [...] - 8462-4 BP DIASTOLIC 62 mm Hg May 28, 2013 pulse rate E&M - 8867-4 PULSE RATE 75 /min May 28, 2013 blood pressure, systolic - 8480-6 BP SYSTOLIC 132 mm Hg May 28, 2013 blood pressure, diastolic - 8462-4 BP DIASTOLIC 77 mm Hg Results Date Description Test Name [...] 34.0-44.0 2009Mar 03, platelet count PLATELETS 347 [phone] X10E3/UL 10*3/mm3 Mar 03, erythrocyte ESR 53 mm/hr 0-30 High 2009 sedimentation rate May 05, hemoglobin, blood HGB 12.5 g/dL 11.5-15.0 2009May 05, hematocrit, blood HCT 37.5 % 34.0-44.0 2009May 05, platelet count PLATELETS 368 [phone] X10E3/UL 10*3/mm3 May 05, erythrocyte ESR 44 mm/hr 0-30 High 2009 sedimentation rate Jun 23, hemoglobin, blood HGB 12.4 g/dL 11.5-15.0 2010Jun 23, hematocrit, blood HCT 37.8 % 34.0-44.0 2010Jun 23, platelet count PLATELETS 382 [phone] X10E3/UL 10*3/mm3 Jun 23, erythrocyte ESR 36 mm/hr 0-30 High 2010 sedimentation rate September 21, hemoglobin, blood HGB 12.7 g/dL 11.5-15.0 2010September 21, hematocrit, blood HCT 38.7 % 34.0-44.0 2010September 21, platelet count PLATELETS 321 [phone] X10E3/UL 10*3/mm3 September 21, erythrocyte ESR 45 mm/hr 0-30 High 2010 sedimentation rate Mar 25, hemoglobin, blood HGB 12.6 g/dL 11.5-15.0 2010Mar 25, hematocrit, blood HCT 38.1 % 34.0-44.0 2010Mar 25, platelet count PLATELETS 348 [phone] X10E3/UL 10*3/mm3 Mar 25, erythrocyte ESR 50 mm/hr 0-56 2011 sedimentation rate Dec 07, alpha-1 globulin, ALPHA [...] 15, aspartate SGOT (AST) 21 U/L 0-40 2009 aminotransferase (SGOT), serum Sep 15, alanine SGPT [...] 2010September 21, alkaline ALK PHOS 121 U/L -165 2010 phosphatase, serum September 21, aspartate SGOT [...]
--- OUTSIDE RECORDS SUMMARY | 2019-01-11 16:13 | XMS REPORT | Continuity of Care Document ---
:1945 Author Organization [facility] Team Providers Name Role Phone Harpal Garcia MD Unavailable Unavailable Insurance Providers Payer name Policy type / Coverage type Policy ID Covered democrat ID Policy [employer] Medicaid Encounters Encounter Performer Location Date Lab Report [facility] Apr 10, 2013 Problems Problem Effective Dates Problem Status KNEE PAIN, BILATERAL Active SHOULDER PAIN, BILATERAL Active ARTHRITIS Active PAIN IN JOINT, MULTIPLE SITES Active DEGENERATIVE JOINT DISEASE, KNEE Active RHEUMATOID ARTHRITIS Active OSTEOPENIA Active SHOULDER PAIN, RIGHT Active ELBOW PAIN, LEFT Active Medications Medication Instructions Start Date Status FOLIC ACID 1 MG TABS 1 po daily Dec 16, 2009 Active VITAMIN D 18270 UNIT CAPS 1 tab q week Dec [...] 34.0-44.0 2009Mar 03, platelet count PLATELETS 347 [phone] X10E3/UL 10*3/mm3 Mar 03, erythrocyte ESR 53 mm/hr 0-30 High 2009 sedimentation rate May 05, hemoglobin, blood HGB 12.5 g/dL 11.5-15.0 2009May 05, hematocrit, blood HCT 37.5 % 34.0-44.0 2009May 05, platelet count PLATELETS 368 [phone] X10E3/UL 10*3/mm3 May 05, erythrocyte ESR 44 mm/hr 0-30 High 2009 sedimentation rate Jun 23, hemoglobin, blood HGB 12.4 g/dL 11.5-15.0 2010Jun 23, hematocrit, blood HCT 37.8 % 34.0-44.0 2010Jun 23, platelet count PLATELETS 382 [phone] X10E3/UL 10*3/mm3 Jun 23, erythrocyte ESR 36 mm/hr 0-30 High 2010 sedimentation rate September 21, hemoglobin, blood HGB 12.7 g/dL 11.5-15.0 2010September 21, hematocrit, blood HCT 38.7 % 34.0-44.0 2010September 21, platelet count PLATELETS 321 [phone] X10E3/UL 10*3/mm3 September 21, erythrocyte ESR 45 mm/hr 0-30 High 2010 sedimentation rate Mar 25, hemoglobin, blood HGB 12.6 g/dL 11.5-15.0 2010Mar 25, hematocrit, blood HCT 38.1 % 34.0-44.0 2010Mar 25, platelet count PLATELETS 348 [phone] X10E3/UL 10*3/mm3 Mar 25, erythrocyte ESR 50 [...]
--- OUTSIDE RECORDS SUMMARY | 2019-01-11 16:13 | XMS REPORT | Continuity of Care Document ---
:1945 Author Organization [facility] Team Providers Name Role Phone Harpal Garcia MD Unavailable Unavailable Insurance Providers Payer name Policy type / Coverage type Policy ID Covered republican ID Policy [employer] Medicaid Encounters Encounter Performer Location Date Lab Report [facility] Aug 26, 2013 Problems Problem Effective Dates Problem Status KNEE PAIN, BILATERAL Active SHOULDER PAIN, BILATERAL Active ARTHRITIS Active PAIN IN JOINT, MULTIPLE SITES Active DEGENERATIVE JOINT DISEASE, KNEE Active RHEUMATOID ARTHRITIS Active OSTEOPENIA Active SHOULDER PAIN, RIGHT Active ELBOW PAIN, LEFT Active Medications Medication Instructions Start Date Status FOLIC ACID 1 MG TABS 1 po daily Dec 16, 2009 Active VITAMIN D 56320 UNIT CAPS 1 tab q week Dec [...] 26, 2013 Active METHOTREXATE 2.5 MG TABS 6 tb po q wk Aug 27, 2013 Active Vital Signs Date Description Test [...] - 8462-4 BP DIASTOLIC 77 mm Hg Aug 27, 2013 blood pressure, systolic - 8480-6 BP SYSTOLIC 133 mm Hg Aug 27, 2013 blood pressure, diastolic - 8462-4 BP DIASTOLIC 80 mm Hg Aug 27, 2013 pulse rate E&M - 8867-4 PULSE RATE 80 /min Results Date Description Test Name Value [...] 34.0-44.0 2009Mar 03, platelet count PLATELETS 347 [phone] X10E3/UL 10*3/mm3 Mar 03, erythrocyte ESR 53 mm/hr 0-30 High 2009 sedimentation rate May 05, hemoglobin, blood HGB 12.5 g/dL 11.5-15.0 2009May 05, hematocrit, blood HCT 37.5 % 34.0-44.0 2009May 05, platelet count PLATELETS 368 [phone] X10E3/UL 10*3/mm3 May 05, erythrocyte ESR 44 mm/hr 0-30 High 2009 sedimentation rate Jun 23, hemoglobin, blood HGB 12.4 g/dL 11.5-15.0 2010Jun 23, hematocrit, blood HCT 37.8 % 34.0-44.0 2010Jun 23, platelet count PLATELETS 382 [phone] X10E3/UL 10*3/mm3 Jun 23, erythrocyte ESR 36 mm/hr 0-30 High 2010 sedimentation rate September 21, hemoglobin, blood HGB 12.7 g/dL 11.5-15.0 2010September 21, hematocrit, blood HCT 38.7 % 34.0-44.0 2010September 21, platelet count PLATELETS 321 [phone] X10E3/UL 10*3/mm3 September 21, erythrocyte ESR 45 mm/hr 0-30 High 2010 sedimentation rate Mar 25, hemoglobin, blood HGB 12.6 g/dL 11.5-15.0 2010Mar 25, hematocrit, blood HCT 38.1 % 34.0-44.0 2010Mar 25, platelet count PLATELETS 348 [phone] X10E3/UL 10*3/mm3 Mar 25, erythrocyte ESR 50 [...] U/L 0-40 2009 aminotransferase (SGOT), serum Jan 15, alanine SGPT [...]
--- OUTSIDE RECORDS SUMMARY | 2019-01-11 16:13 | XMS REPORT | Continuity of Care Document ---
:1945 Author Organization [facility] Care Team Providers Name Role Phone Harpal Garcia MD Unavailable Unavailable Insurance Providers Payer name Policy type / Coverage type Policy ID Covered libertarian ID Policy [employer] Medicaid Encounters Encounter Performer Location Date Office Visit Harpal Garcia MD [place] [facility] Aug 27, 2013 Problems Problem Effective Dates Problem Status KNEE PAIN, BILATERAL Active SHOULDER PAIN, BILATERAL Active ARTHRITIS Active PAIN IN JOINT, MULTIPLE SITES Active DEGENERATIVE JOINT DISEASE, KNEE Active RHEUMATOID ARTHRITIS Active OSTEOPENIA Active SHOULDER PAIN, RIGHT Active ELBOW PAIN, LEFT Active Osteoporosis Aug 27, 2013 Active Medications Medication Instructions Start Date Status FOLIC ACID 1 MG TABS 1 po daily Dec 16, 2009 Active VITAMIN D 55855 UNIT CAPS 1 tab q week Dec [...] 34.0-44.0 2009Mar 03, platelet count PLATELETS 347 [phone] X10E3/UL 10*3/mm3 Mar 03, erythrocyte ESR 53 mm/hr 0-30 High 2009 sedimentation rate May 05, hemoglobin, blood HGB 12.5 g/dL 11.5-15.0 2009May 05, hematocrit, blood HCT 37.5 % 34.0-44.0 2009May 05, platelet count PLATELETS 368 [phone] X10E3/UL 10*3/mm3 May 05, erythrocyte ESR 44 mm/hr 0-30 High 2009 sedimentation rate Jun 23, hemoglobin, blood HGB 12.4 g/dL 11.5-15.0 2010Jun 23, hematocrit, blood HCT 37.8 % 34.0-44.0 2010Jun 23, platelet count PLATELETS 382 [phone] X10E3/UL 10*3/mm3 Jun 23, erythrocyte ESR 36 mm/hr 0-30 High 2010 sedimentation rate September 21, hemoglobin, blood HGB 12.7 g/dL 11.5-15.0 2010September 21, hematocrit, blood HCT 38.7 % 34.0-44.0 2010September 21, platelet count PLATELETS 321 [phone] X10E3/UL 10*3/mm3 September 21, erythrocyte ESR 45 mm/hr 0-30 High 2010 sedimentation rate Mar 25, hemoglobin, blood HGB 12.6 g/dL 11.5-15.0 2010Mar 25, hematocrit, blood HCT 38.1 % 34.0-44.0 2010Mar 25, platelet count PLATELETS 348 [phone] X10E3/UL 10*3/mm3 Mar 25, erythrocyte ESR 50 [...] creatinine, serum CREATININE 0.69 0.57-1.00 2010 mg/dL Oct 28, C-reactive protein, CRP 3.46 Units High 2010 [...]
--- OUTSIDE RECORDS SUMMARY | 2019-01-11 16:13 | XMS REPORT | Continuity of Care Document ---
:1945 Author Organization [facility] Care Team Providers Name Role Phone Harpal Garcia MD Unavailable Unavailable Insurance Providers Payer name Policy type / Coverage type Policy ID Covered democrat ID Policy [employer] Medicaid Encounters Encounter Performer Location Date Lab Report [facility] Jul 10, 2013 Problems Problem Effective Dates Problem Status KNEE PAIN, BILATERAL Active SHOULDER PAIN, BILATERAL Active ARTHRITIS Active PAIN IN JOINT, MULTIPLE SITES Active DEGENERATIVE JOINT DISEASE, KNEE Active RHEUMATOID ARTHRITIS Active OSTEOPENIA Active SHOULDER PAIN, RIGHT Active ELBOW PAIN, LEFT Active Medications Medication Instructions Start Date Status FOLIC ACID 1 MG TABS 1 po daily Dec 16, 2009 Active VITAMIN D 62607 UNIT CAPS 1 tab q week Dec [...] 34.0-44.0 2009Mar 03, platelet count PLATELETS 347 [phone] X10E3/UL 10*3/mm3 Mar 03, erythrocyte ESR 53 mm/hr 0-30 High 2009 sedimentation rate May 05, hemoglobin, blood HGB 12.5 g/dL 11.5-15.0 2009May 05, hematocrit, blood HCT 37.5 % 34.0-44.0 2009May 05, platelet count PLATELETS 368 [phone] X10E3/UL 10*3/mm3 May 05, erythrocyte ESR 44 mm/hr 0-30 High 2009 sedimentation rate Jun 23, hemoglobin, blood HGB 12.4 g/dL 11.5-15.0 2010Jun 23, hematocrit, blood HCT 37.8 % 34.0-44.0 2010Jun 23, platelet count PLATELETS 382 [phone] X10E3/UL 10*3/mm3 Jun 23, erythrocyte ESR 36 mm/hr 0-30 High 2010 sedimentation rate September 21, hemoglobin, blood HGB 12.7 g/dL 11.5-15.0 2010September 21, hematocrit, blood HCT 38.7 % 34.0-44.0 2010September 21, platelet count PLATELETS 321 [phone] X10E3/UL 10*3/mm3 September 21, erythrocyte ESR 45 mm/hr 0-30 High 2010 sedimentation rate Mar 25, hemoglobin, blood HGB 12.6 g/dL 11.5-15.0 2010Mar 25, hematocrit, blood HCT 38.1 % 34.0-44.0 2010Mar 25, platelet count PLATELETS 348 [phone] X10E3/UL 10*3/mm3 Mar 25, erythrocyte ESR 50 [...]
--- OUTSIDE RECORDS SUMMARY | 2019-01-11 16:13 | XMS REPORT | Summary of Care ---
:1945 Author Name DEVON OLIVIER M.D. Address Unavailable Unavailable , Care Team Providers Name Role Phone DEVON OLIVIER M.D. Unavailable Unavailable GENA VERDE, SOFY Unavailable Unavailable BRIAN VERDE ND, ROSAURA Salinas Unavailable Unavailable Unavailable Unavailable Unavailable Functional Status Name Dates Details Functional status health issues are not documented Status: Name Dates Details Cognitive status health issues are not documented Status: Problems Name Dates Details Primary osteoarthritis of both knees (715.16, M17.0) Status: Active Abnormal LFTs (790.6, R94.5) Status: Active Vitamin D insufficiency (268.9, E55.9) Status: Active High risk medication use (V58.69, Z79.899) Status: Active Seropositive rheumatoid arthritis (714.0, M05.9) Status: Active Osteopenia (733.90, M85.80) Status: Active Medications Name Dates Details Hydroxychloroquine Sulfate 200 MG Oral Tablet TAKE 1.5 TABLET ONCE DAILY WITH FOOD. Quantity: 45 Refills: 6 DEVON OLIVIER M.D. Start : 15-May-2018 Active Allergies and Adverse Reactions Name Dates Details No Known Drug Allergies (Allergy) Status: Active Past Medical History Name Dates Details History of rheumatoid arthritis (V13.4, Z87.39) Status: Resolved History of Seronegative rheumatoid arthritis (714.0, M06.00) Status: Resolved Procedures Procedure Dates Details [QLH] CBC (INCLUDES DIFF/PLT) Date: 11-Sep-2018 [QLH] HEPATIC FUNCTION PANEL Date: 11-Sep-2018 [QLH] C-REACTIVE PROTEIN Date: 11-Sep-2018 [QLH] SED RATE BY MODIFIED WESTERGREN Date: 11-Sep-2018 [L] Calcium, Serum Date: 11-Sep-2018 [QLH] VITAMIN D, 25-HYDROXY, LC/MS/MS Date: 11-Sep-2018 [L] Creatine, Serum Date: 11-Sep-2018 History of Hysterectomy Completed Immunization Name Dates Details Immunizations not documented Family History Name Dates Details Family history of cardiac disorder (V17.49, Z82.49) Comments: Family History Status: Active Social History Name Dates Details - Status: Name Dates Details Never smoker Vital Signs Date Test Result Details [id number] BP Systolic 160 mm[Hg] Status: BP Diastolic 80 mm[Hg] Status: Height 60 in Status: Weight 164 lb Status: Body Mass Index Calculated 32.03 kg/m2 Status: Body Surface Area Calculated 1.72 m2 Status: Heart Rate 71 /min Status: Results Date Description Value Details Results not documented Plan of Care Name Dates Details Planned Observations [QLH] CBC (INCLUDES DIFF/PLT) On: 03-Mar-2019 Intent [QLH] HEPATIC FUNCTION PANEL On: 03-Mar-2019 Intent [QLH] C-REACTIVE PROTEIN On: 03-Mar-2019 Intent [QLH] SED RATE BY MODIFIED WESTERGREN On: 03-Mar-2019 Intent [L] Calcium, Serum On: 03-Mar-2019 Intent [QLH] VITAMIN D, 25-HYDROXY, LC/MS/MS On: 03-Mar-2019 Intent [L] Creatine, Serum On: 03-Mar-2019 Intent Planned Goals not documented Planned Encounters Follow-up visit in 6 months Appointment; DEVON OLIVIER M.D. On: 12-Mar-2019 15:00 Interventions Provided Medication ChangesHydroxychloroquine Sulfate 200 MG Oral Tablet - RenewPlanPlanThe lab results were reviewed with the patient and explanation and reassurance was provided to her.We will lower the dose of hydroxychloroquine to 300 mg dailySide effects and potential risk of medication including ocular toxicity, neuropathy & myopathy, hyperpigmentation of skin, nausea and dizziness were reviewed.She will continue taking calcium and vitamin D supplement.A CBC, LFT, serum creatinine, sed rate and CRP will be obtained one week prior to her next visit.Follow-up in 4 months. Instructions Name Dates Details Instructions not documented Encounters Appointment; DEVON OLIVIER M.D. On: 18-Oct-2016 13:45 Encounter Diagnosis: Problem not documented Appointment; DEVON OLIVIER M.D. On: 21-Feb-2017 14:30 Encounter Diagnosis: Problem not documented Appointment; DEVON OLIVIER M.D. On: 01-Feb-2018 16:00 Encounter Diagnosis: Problem not documented Appointment; DEVON OLIVIER M.D. On: 15-May-2018 15:30 Encounter Diagnosis: Problem not documented Appointment; DEVON OLIVIER M.D. On: 11-Sep-2018 15:30 Encounter Diagnosis: Problem not documented
--- NOTE | 2019-01-11 16:49 | ER ---
Nurse's Notes [facility] Name: Elizabeth Leung Age: 73 yrs Sex: Female : 1945 Arrival Date: 01/11/2019 Time: 16:09 Bed 12 Private MD: Diagnosis: Rash and other nonspecific skin eruption Presentation: 01/11 16:14 Presenting complaint: Patient states: "I have had this rash since August. It won't go aj1 away. I saw the doctor he gave me a cream and prednisone, but its still there and I'm itching everywhere" Reports rash to back, under breasts, stomach, and legs. Transition of care: patient was not received from another setting of care. Onset: The symptoms/episode began/occurred 5 month(s) ago. Anaphylaxis evaluation, the patient reports or I have noted the following symptoms which indicate a significant risk of anaphylaxis:. Onset of symptoms was August 2018. Risk Assessment: Do you want to hurt yourself or someone else? Patient reports no desire to harm self or others. Initial Sepsis Screen: Does the patient meet any 2 criteria? No. Patient's initial sepsis screen is negative. Does the patient have a suspected source of infection? No. Patient's initial sepsis screen is negative. Care prior to arrival: None. 16:14 Method Of Arrival: Ambulatory aj 16:14 Acuity: DEBBI 4 aj1 Triage Assessment: 16:17 General: Appears in no apparent distress. comfortable, Behavior is calm, cooperative, aj1 appropriate for age. Pain: Denies pain. Neuro: Level of Consciousness is awake, alert, obeys commands, Oriented to person, place, time, situation. Cardiovascular: Patient's skin is warm and dry. Respiratory: Airway is patent Respiratory effort is even, unlabored, Respiratory pattern is regular, symmetrical. Historical: - Allergies: 16:16 No Known Allergies; aj1 - Home Meds: 16:17 hydroxychloroquine 200 mg oral tab 1 tab 2 times per day [Active]; aj1 - PMHx: 16:16 Arthritis; Glaucoma; aj1 - Immunization history:: Flu vaccine is not up to date. - Social history:: Smoking status: Patient/guardian denies using tobacco. - Ebola Screening: : Patient denies travel to an Ebola-affected area in the 21 days before illness onset. Screenin:04 Abuse screen: Denies threats or abuse. Denies injuries from another. Nutritional ss screening: No deficits noted. Tuberculosis screening: Never had TB. Fall Risk None identified. Assessment: 16:30 General: Appears in no apparent distress. comfortable, Behavior is calm, cooperative. ss Pain: Denies pain. Neuro: Level of Consciousness is awake, alert, obeys commands, Oriented to person, place, time, situation. Cardiovascular: Capillary refill < 3 seconds. Respiratory: Airway is patent Respiratory effort is even, unlabored, Respiratory pattern is regular, symmetrical, Breath sounds are clear bilaterally. Denies cough, shortness of breath. GI: Patient currently denies diarrhea, nausea, vomiting. EENT: Oral mucosa is moist. Derm: Skin is intact, is healthy with good turgor, Skin is dry, Skin is pink, warm \\T\\ dry. Skin temperature is warm Rash noted that is red, on chest, right arm and left arm. Musculoskeletal: Circulation, motion, and sensation intact. Range of motion: intact in all extremities, Swelling absent. Vital Signs: 16:17 BP 134 / 80; Pulse 73; Resp 18; Temp 97.2; Pulse Ox 98% on R/A; Weight 72.57 kg (R); aj1 Height 5 ft. 0 in. (152.40 cm) (R); Pain 0/10; 16:17 Body Mass Index 31.25 (72.57 kg, 152.40 cm) aj1 ED Course: 16:09 Patient arrived in ED. as 16:15 Triage completed. aj1 16:17 Arm band placed on. aj 16:21 Maricruz Ibrahim FNP [facility]. nc 16:21 Maximo Lopez MD is Attending Physician. nh 16:53 Blanca Crabtree, MONI is Primary Nurse. ss 17:04 Patient has correct armband on for positive identification. Bed in low position. Call ss light in reach. 17:04 No provider procedures requiring assistance completed. Patient did not have IV access ss during this emergency room visit. Administered Medications: 17:03 Drug: Dexamethasone 10 mg Route: IM; Site: left gluteus; ss 17:16 Follow up: Response: No adverse reaction ss Outcome: 16:47 Discharge ordered by . nh 17:04 Condition: good ss 17:04 Discharge instructions given to patient, family, Instructed on discharge instructions, follow up and referral plans. medication usage, Demonstrated understanding of instructions, follow-up care, medications, Prescriptions given X 1. 17:17 Discharged to home ambulatory. 17:18 Patient left the ED. Signatures: Becky Atkins, RN RN aj1 Maricruz Ibrahim, NURSE AIDE EVALUATOR NURSE AIDE EVALUATOR nc Letty Hurst Shelby, MONI RN
--- NOTE | 2019-01-11 16:49 | EDPHYS ---
Physician Documentation [facility] Name: Elizabeth Leung Age: 73 yrs Sex: Female : 1945 Arrival Date: 01/11/2019 Time: 16:09 Bed 12 Private MD: ED Physician Maximo Lopez HPI: 01/11 16:44 This 73 yrs old Female presents to ER via Ambulatory with complaints of nh Itching, Rash. 16:44 Onset: The symptoms/episode began/occurred 4 month(s) ago, reports that it started nh after switching from methotrexate to plaquenil. Associated signs and symptoms: Pertinent positives: Pertinent negatives: abdominal pain, chest pain, congestion, constipation, cough, diarrhea, dysuria, earache, fever, headache, nasal discharge, seizure, shortness of breath, sore throat, vomiting, wheezing. Modifying factors: The patient symptoms are alleviated by nothing, the patient symptoms are aggravated by nothing. The patient has not experienced similar symptoms in the past. The patient has not recently seen a physician. Historical: - Allergies: 16:16 No Known Allergies; aj1 - Home Meds: 16:17 hydroxychloroquine 200 mg oral tab 1 tab 2 times per day [Active]; aj1 - PMHx: 16:16 Arthritis; Glaucoma; aj1 - Immunization history:: Flu vaccine is not up to date. - Social history:: Smoking status: Patient/guardian denies using tobacco. - Ebola Screening: : Patient denies travel to an Ebola-affected area in the 21 days before illness onset. ROS: 16:44 Constitutional: Negative for fever, chills, and weight loss, Eyes: Negative for injury, nh pain, redness, and discharge, ENT: Negative for injury, pain, and discharge, Neck: Negative for injury, pain, and swelling, Cardiovascular: Negative for chest pain, palpitations, and edema, Respiratory: Negative for shortness of breath, cough, wheezing, and pleuritic chest pain, Abdomen/GI: Negative for abdominal pain, nausea, vomiting, diarrhea, and constipation, Back: Negative for injury and pain, : Negative for injury, bleeding, discharge, and swelling, MS/Extremity: Negative for injury and deformity, Neuro: Negative for headache, weakness, numbness, tingling, and seizure, Psych: Negative for depression, anxiety, suicide ideation, homicidal ideation, and hallucinations, Allergy/Immunology: Negative for hives, rash, and allergies. 16:44 Skin: Positive for rash, diffusely. Exam: 16:44 Constitutional: This is a well developed, well nourished patient who is awake, alert, nh and in no acute distress. Head/Face: Normocephalic, atraumatic. Eyes: Pupils equal round and reactive to light, extra-ocular motions intact. Lids and lashes normal. Conjunctiva and sclera are non-icteric and not injected. Cornea within normal limits. Periorbital areas with no swelling, redness, or edema. ENT: Nares patent. No nasal discharge, no septal abnormalities noted. Tympanic membranes are normal and external auditory canals are clear. Oropharynx with no redness, swelling, or masses, exudates, or evidence of obstruction, uvula midline. Mucous membranes moist. Neck: Trachea midline, no thyromegaly or masses palpated, and no cervical lymphadenopathy. Supple, full range of motion without nuchal rigidity, or vertebral point tenderness. No Meningismus. Chest/axilla: Normal chest wall appearance and motion. Nontender with no deformity. No lesions are appreciated. Cardiovascular: Regular rate and rhythm with a normal S1 and S2. No gallops, murmurs, or rubs. Normal PMI, no JVD. No pulse deficits. Respiratory: Lungs have equal breath sounds bilaterally, clear to auscultation and percussion. No rales, rhonchi or wheezes noted. No increased work of breathing, no retractions or nasal flaring. Abdomen/GI: Soft, non-tender, with normal bowel sounds. No distension or tympany. No guarding or rebound. No evidence of tenderness throughout. Back: No spinal tenderness. No costovertebral tenderness. Full range of motion. MS/ Extremity: Pulses equal, no cyanosis. Neurovascular intact. Full, normal range of motion. Neuro: Awake and alert, GCS 15, oriented to person, place, time, and situation. Cranial nerves II-XII grossly intact. Motor strength 5/5 in all extremities. Sensory grossly intact. Cerebellar exam normal. Normal gait. Psych: Awake, alert, with orientation to person, place and time. Behavior, mood, and affect are within normal limits. 16:44 Skin: rash a mild rash is noted, drug rash. Vital Signs: 16:17 BP 134 / 80; Pulse 73; Resp 18; Temp 97.2; Pulse Ox 98% on R/A; Weight 72.57 kg (R); aj1 Height 5 ft. 0 in. (152.40 cm) (R); Pain 0/10; 16:17 Body Mass Index 31.25 (72.57 kg, 152.40 cm) aj1 MDM: 16:21 Patient medically screened. pr 16:44 Data reviewed: vital signs, nurses notes, I have discussed the patient's pr presentation/case with the attending Emergency Department Physician; and as a result, I will discharge patient. Counseling: I had a detailed discussion with the patient and/or guardian regarding: the historical points, exam findings, and any diagnostic results supporting the discharge/admit diagnosis, the need for outpatient follow up, to return to the emergency department if symptoms worsen or persist or if there are any questions or concerns that arise at home. Administered Medications: 17:03 Drug: Dexamethasone 10 mg Route: IM; Site: left gluteus; ss 17:16 Follow up: Response: No adverse reaction ss Disposition: 17:58 Co-signature as Attending Physician, Maximo Lopez MD. rn Disposition: 01/11/19 16:47 Discharged to Home. Impression: Rash and other nonspecific skin eruption. - Condition is Stable. - Discharge Instructions: Allergies, Adult, Drug Rash. - Prescriptions for Medrol (Lei) 4 mg Oral Tablets, Dose Pack - take 1 tablet by ORAL route as directed - follow package instructions; 1 packet. - Medication Reconciliation Form, Thank You Letter, Antibiotic Education, Prescription Opioid Use form. - Follow up: Private Physician; When: 5 - 6 days; Reason: Recheck today's complaints. - Problem is new. - Symptoms are unchanged. Signatures: Becky Atkins RN RN aj1 Maricruz Ibrahim, SENIOR FORMULATION SCIENTIST SENIOR FORMULATION SCIENTIST pr Maximo Lopez MD MD rn Smirch, Shelby, RN RN ss Corrections: (The following items were deleted from the chart) 17:18 16:47 01/11/2019 16:47 Discharged to Home. Impression: Rash and other nonspecific skin ss eruption. Condition is Stable. Forms are Medication Reconciliation Form, Thank You Letter, Antibiotic Education, Prescription Opioid Use. Follow up: Private Physician; When: 5 - 6 days; Reason: Recheck today's complaints. Problem is new. Symptoms are unchanged. nh
[2019-01-11] MEDS ORDERED: dexAMETHasone 10 MG/ML VIAL ONE (16:59)
[2019-01-11 18:16] VITALS: BP 134/80; TEMP 97.2; O2SAT 98
== END 2019-01-11 17:18 | disposition home or self-care (01) ==
LOC: ER 16:08
DX: R21 Rash and other nonspecific skin eruption (principal); M19.90 Unspecified osteoarthritis, unspecified site
CPT/HCPCS: 96372; 99283; J1100

== ENCOUNTER 2019-06-17 13:56 | Emergency (ER) | payer OTHER ==
--- OUTSIDE RECORDS SUMMARY | 2019-06-17 13:58 | XMS REPORT | Summary of Care ---
:1945 Author Name Liz Ortiz M.A. Address Unavailable Unavailable , Care Team Providers Name Role Phone DEVON OLIVIER M.D. Unavailable Unavailable Liz Ortiz M.A. Unavailable Unavailable GENA VERDE, SOFY Unavailable Unavailable BRIAN VERDE DE, ROSAURA Sal[place] Unavailable Unavailable Unavailable Unavailable Unavailable Functional Status Name Dates Details Functional status health issues are not documented Status: Name Dates Details Cognitive status health issues are not documented Status: Problems Name Dates Details Primary osteoarthritis of both knees (715.16, M17.0) Status: Active Abnormal LFTs (790.6, R94.5) Status: Active Vitamin D insufficiency (268.9, E55.9) Status: Active Seropositive rheumatoid arthritis (714.0, M05.9) Status: Active High risk medication use (V58.69, Z79.899) Status: Active Osteopenia (733.90, M85.80) Status: Active [...] M06.00) Status: Resolved Procedures Procedure Dates Details [[facility] CREATININE W/EGFR Date: 03-Mar-2019 History of Hysterectomy Completed Immunization Name Dates Details Immunizations not documented Family History Name Dates Details Family history of cardiac disorder (V17.49, Z82.49) Comments: Family History Status: Active Social History Name Dates Details - Status: Name Dates Details Never smoker Vital Signs Date Test Result Details No Known Vitals to report Results Date Description Value Details Results not documented Plan of Care Name Dates Details Planned Observations Planned Goals not documented Planned Encounters Appointment; DEVON OLIVIER M.D. On: 12-Mar-2019 15:00 Interventions Provided Labs/Procedures/Imaging[QLH] CREATININE W/EGFR; To Be Done: 03 Mar 2019 Instructions Name Dates Details Instructions not documented Encounters Appointment; DEVON OLIVIER M.D. On: 01-Feb-2018 16:00 Encounter Diagnosis: Problem not documented Appointment; DEVON OLIVIER M.D. On: 15-May-2018 15:30 Encounter Diagnosis: Problem not documented Appointment; DEVON OLIVIER M.D. On: 11-Sep-2018 15:30 Encounter Diagnosis: Problem not documented
[2019-06-17] MEDS ORDERED: HYDROCODONE/APAP 5/325 MG TAB ONE (15:51)
--- NOTE | 2019-06-17 15:55 | RAD REPORT ---
EXAM DESCRIPTION: RAD -Hand Left 3 View - 06/17/2019 3:42 pm CLINICAL HISTORY: Left hand pain status post injury FINDINGS: Nondisplaced oblique fracture fourth metacarpal No dislocation Osteoporosis
--- NOTE | 2019-06-17 16:07 | ER ---
Nurse's Notes [facility] Name: Elizabeth Leung Age: 73 yrs Sex: Female : 1945 Arrival Date: 06/17/2019 Time: 13:58 Bed 12 Private MD: Diagnosis: Nondisplaced fracture of base of fourth metacarpal bone, left hand-oblique Presentation: 06/17 14:38 Presenting complaint: Patient states: L hand pain and swelling that began yesterday ss after falling in the afternoon time. Transition of care: patient was not received from another setting of care. Onset of symptoms was June 16, 2019. Risk Assessment: Do you want to hurt yourself or someone else? Patient reports no desire to harm self or others. Initial Sepsis Screen: Does the patient meet any 2 criteria? No. Patient's initial sepsis screen is negative. Does the patient have a suspected source of infection? No. Patient's initial sepsis screen is negative. Care prior to arrival: None. 14:38 Method Of Arrival: Ambulatory ss 14:38 Acuity: DEBBI 4 ss Historical: - Allergies: 14:52 No Known Allergies; ss - PMHx: 14:52 Arthritis; Glaucoma; ss - Immunization history:: Adult Immunizations up to date. - Coronavirus screen:: The patient has NOT traveled to [place] in the past 14 days. Proceed with normal triage process as indicated. - Social history:: Smoking status: Patient denies any tobacco usage or history of. - Family history:: not pertinent. - Ebola Screening: : Patient denies exposure to infectious person Patient denies travel to an Ebola-affected area in the 21 days before illness onset. Screenin:35 Abuse screen: Denies threats or abuse. Denies injuries from another. Nutritional ss screening: No deficits noted. Tuberculosis screening: Never had TB. Fall Risk None identified. Assessment: 14:35 General: Appears comfortable, Behavior is calm, cooperative, Denies fever, feeling ill, ss fatigue, chills. Pain: Complains of pain in dorsum of left hand and lateral aspect of left hand Pain currently is 6 out of 10 on a pain scale. Quality of pain is described as aching, tender, Pain began yesterday afternoon Is continuous. Neuro: Level of Consciousness is awake, alert, obeys commands, Oriented to person, place, time, situation. Respiratory: Airway is patent Respiratory effort is even, unlabored, Respiratory pattern is regular, symmetrical. Derm: Skin is intact, is healthy with good turgor, Skin is dry, Skin is pink, warm \T\ dry. normal. Musculoskeletal: Swelling present in dorsum of left hand and lateral aspect of left hand. 15:45 Reassessment: ICE PACK APPLIED TO AFFECTED AREA. 16:33 Reassessment: Patient appears in no apparent distress at this time. No changes from previously documented assessment. Patient and/or family updated on plan of care and expected duration. Pain level reassessed. Vital Signs: 14:52 BP 118 / 57; Pulse 67; Resp 16; Temp 98.1(TE); Pulse Ox 97% on R/A; Weight 74.39 kg; ss Height 5 ft. 0 in. (152.40 cm); Pain 6/10; 14:52 Body Mass Index 32.03 (74.39 kg, 152.40 cm) ED Course: 13:58 Patient arrived in ED. as 14:35 Patient has correct armband on for positive identification. Bed in low position. Call ss light in reach. 14:38 Blanca Crabtree, MONI is Primary Nurse. 14:44 Cordell Condon MD is Attending Physician. [facility] 14:45 Triage completed. 14:52 Arm band placed on right wrist. 16:02 Geo Seymour MD is Referral Physician. [facility] 16:32 No provider procedures requiring assistance completed. Patient did not have IV access ss during this emergency room visit. Orthoglass splint: Ulnar gutter/Boxer splint applied on left forearm. Administered Medications: 15:45 Drug: [place] 5 mg-325 mg 1 tabs Route: PO; 16:36 Follow up: Response: No adverse reaction; Pain is decreased Outcome: 16:[address] ordered [address] . [facility] 16:32 Discharged to home ambulatory, with family. 16:32 Condition: good 16:32 Discharge instructions given to patient, family, Instructed on discharge instructions, follow up and referral plans. medication usage, Demonstrated understanding of instructions, follow-up care, medications, splint care, Prescriptions given X 1. 16:35 Patient left the ED. Signatures: Cordell Condon MD MD cha Martinez, Amelia as Smirch, Shelby, MNOI RN
--- NOTE | 2019-06-17 16:08 | EDPHYS ---
Physician Documentation [facility] Name: Elizabeth Leung Age: 73 yrs Sex: Female : 1945 Arrival Date: 06/17/2019 Time: 13:58 Bed 12 Private MD: ED Physician Cordell Condon HPI: 06/17 15:19 This 73 yrs old Female presents to ER via Ambulatory with complaints of Hand stu Injury. 15:19 The patient or guardian reports decreased range of motion, pain. The complaints affect stu the left hand diffusely. Context: The problem was sustained at home, resulted from a fall. Onset: The symptoms/episode began/occurred 1 day(s) ago. Modifying factors: The symptoms are alleviated by holding still, the symptoms are aggravated by movement. Associated signs and symptoms: Pertinent negatives: cyanosis distally, decreased sensation distally, fever, nausea, numbness distally, tingling distally, vomiting. Severity of symptoms: At their worst the symptoms were mild, in the emergency department the symptoms are unchanged. The patient has not experienced similar symptoms in the past. Historical: - Allergies: 14:52 No Known Allergies; ss - PMHx: 14:52 Arthritis; Glaucoma; ss - Immunization history:: Adult Immunizations up to date. - Coronavirus screen:: The patient has NOT traveled to [place] in the past 14 days. Proceed with normal triage process as indicated. - Social history:: Smoking status: Patient denies any tobacco usage or history of. - Family history:: not pertinent. - Ebola Screening: : Patient denies exposure to infectious person Patient denies travel to an Ebola-affected area in the 21 days before illness onset. ROS: 15:19 Constitutional: Negative for fever, chills, and weight loss, Eyes: Negative for injury, stu pain, redness, and discharge, ENT: Negative for injury, pain, and discharge, Neck: Negative for injury, pain, and swelling, Cardiovascular: Negative for chest pain, palpitations, and edema, Respiratory: Negative for shortness of breath, cough, wheezing, and pleuritic chest pain, Abdomen/GI: Negative for abdominal pain, nausea, vomiting, diarrhea, and constipation, Back: Negative for injury and pain, : Negative for injury, bleeding, discharge, and swelling, Skin: Negative for injury, rash, and discoloration, Neuro: Negative for headache, weakness, numbness, tingling, and seizure, Psych: Negative for depression, anxiety, suicide ideation, homicidal ideation, and hallucinations, Allergy/Immunology: Negative for hives, rash, and allergies, Endocrine: Negative for neck swelling, polydipsia, polyuria, polyphagia, and marked weight changes, Hematologic/Lymphatic: Negative for swollen nodes, abnormal bleeding, and unusual bruising. 15:19 MS/extremity: Positive for injury or acute deformity, pain, swelling, tenderness, of the lateral aspect of left hand and dorsum of left hand. Exam: 15:19 Constitutional: This is a well developed, well nourished patient who is awake, alert, stu and in no acute distress. Head/Face: Normocephalic, atraumatic. Eyes: Pupils equal round and reactive to light, extra-ocular motions intact. Lids and lashes normal. Conjunctiva and sclera are non-icteric and not injected. Cornea within normal limits. Periorbital areas with no swelling, redness, or edema. ENT: Nares patent. No nasal discharge, no septal abnormalities noted. Tympanic membranes are normal and external auditory canals are clear. Oropharynx with no redness, swelling, or masses, exudates, or evidence of obstruction, uvula midline. Mucous membranes moist. Neck: Trachea midline, no thyromegaly or masses palpated, and no cervical lymphadenopathy. Supple, full range of motion without nuchal rigidity, or vertebral point tenderness. No Meningismus. Chest/axilla: Normal chest wall appearance and motion. Nontender with no deformity. No lesions are appreciated. Cardiovascular: Regular rate and rhythm with a normal S1 and S2. No gallops, murmurs, or rubs. Normal PMI, no JVD. No pulse deficits. Respiratory: Lungs have equal breath sounds bilaterally, clear to auscultation and percussion. No rales, rhonchi or wheezes noted. No increased work of breathing, no retractions or nasal flaring. Abdomen/GI: Soft, non-tender, with normal bowel sounds. No distension or tympany. No guarding or rebound. No evidence of tenderness throughout. Back: No spinal tenderness. No costovertebral tenderness. Full range of motion. Skin: Warm, dry with normal turgor. Normal color with no rashes, no lesions, and no evidence of cellulitis. Neuro: Awake and alert, GCS 15, oriented to person, place, time, and situation. Cranial nerves II-XII grossly intact. Motor strength 5/5 in all extremities. Sensory grossly intact. Cerebellar exam normal. Normal gait. Psych: Awake, alert, with orientation to person, place and time. Behavior, mood, and affect are within normal limits. 15:19 Musculoskeletal/extremity: Extremities: noted in the left hand: decreased ROM, pain, swelling, tenderness. Vital Signs: 14:52 BP 118 / 57; Pulse 67; Resp 16; Temp 98.1(TE); Pulse Ox 97% on R/A; Weight 74.39 kg; ss Height 5 ft. 0 in. (152.40 cm); Pain 6/10; 14:52 Body Mass Index 32.03 (74.39 kg, 152.40 cm) ss MDM: 14:44 Patient medically screened. [facility] 15:22 Data reviewed: vital signs, nurses notes, radiologic studies, plain films. [facility] 06/17 15:19 Order name: Hand Left 3 View XRAY [facility] 06/17 16:02 Order name: RAD EDAL 06/17 15:19 Order name: Ice pack; Complete Time: 15:45 [facility] 06/17 15:59 Order name: Splint - Ulnar Gutter; Complete Time: 16:18 [facility] Administered Medications: 15:45 Drug: [place] 5 mg-325 mg 1 tabs Route: PO; 16:36 Follow up: Response: No adverse reaction; Pain is decreased ss Disposition: 06/17/19 16:06 Discharged to Home. Impression: Nondisplaced fracture of base of fourth metacarpal bone, left hand - oblique. - Condition is Stable. - Discharge Instructions: Metacarpal Fracture, Metacarpal Fracture, [id number]. - Prescriptions for Tylenol- Codeine #3 300-30 mg Oral Tablet - take 2 tablets by ORAL route every 6 hours As needed; 26 tablet. - Medication Reconciliation Form, Thank You Letter, Antibiotic Education, Prescription Opioid Use form. - Follow up: Private Physician; When: 2 - 3 days; Reason: Recheck today's complaints, Continuance of care, Re-evaluation by your physician. Follow up: Geo Seymour MD; When: 1 - 2 days; Reason: Recheck today's complaints, Continuance of care, Re-evaluation by your physician. - Problem is new. - Symptoms have improved. Signatures: Dispatcher [employer] EDCordell Saldaña MD MD cha Smirch, Shelby, RN RN ss Corrections: (The following items were deleted from the chart) 16:35 16:06 06/17/2019 16:06 Discharged to Home. Impression: Nondisplaced fracture of base of ss fourth metacarpal bone, left hand - oblique. Condition is Stable. Forms are Medication Reconciliation Form, Thank You Letter, Antibiotic Education, Prescription Opioid Use. Follow up: Private Physician; When: 2 - 3 days; Reason: Recheck today's complaints, Continuance of care, Re-evaluation by your physician. Follow up: Geo Seymour; When: 1 - 2 days; Reason: Recheck today's complaints, Continuance of care, Re-evaluation by your physician. Problem is new. Symptoms have improved. stu
[2019-06-19 08:14] VITALS: BP 118/57; TEMP 98.1; O2SAT 97
== END 2019-06-17 16:35 | disposition home or self-care (01) ==
LOC: ER 13:56
PROC: 0PSQXZZ Reposition Left Metacarpal, External Approach (ICD-10-PCS; principal; 2019-06-17)
DX: S62.345A Nondisplaced fracture of base of fourth metacarpal bone, left hand, initial encounter for closed fracture (principal); W18.30XA Fall on same level, unspecified, initial encounter; Y93.9 Activity, unspecified; Y92.9 Unspecified place or not applicable
CPT/HCPCS: 99283